=== PATIENT | female | born 1995 ===

== ENCOUNTER → 2020-05-10 | Outpatient (CLI) | payer OTHER | END | disposition home or self-care (01) | LOC: PRENATAL 13:00 | PROVIDERS: ATTEND Specialist | DX: O99.89 Other specified diseases and conditions complicating pregnancy, childbirth and the puerperium (principal); O35.3XX1 Maternal care for (suspected) damage to fetus from viral disease in mother, fetus 1; O35.0XX1 Maternal care for (suspected) central nervous system malformation in fetus, fetus 1 ==

== ENCOUNTER 2020-09-01 12:00 | Inpatient (IN) | payer OTHER ==
[~2020-09-01] VITALS: Ht 165.1 cm; Wt 83.0 kg
[2020-09-11] MEDS ORDERED: PRENATAL CAPLE1 EAC1 PO (14:54)
[2020-09-11] MEDS ORDERED: FOLIC ACID0.8 M1 PO (14:55)
[2020-09-11] MEDS ORDERED: SYMBICORT 80/10.2 GM IH (14:55)
== END 2020-09-13 12:46 | disposition home or self-care (01) | DRG 807 ==
LOC: OB/GYN 09-11 14:47 → LDR 09-11 14:47 → OB/GYN 09-11 22:15 → EDBD 09-13 12:00 → SURH 09-13 12:00 → OB/GYN 09-13 12:46
PROVIDERS: ADMIT Specialist; ATTEND Specialist
PROC: 10E0XZZ Delivery of Products of Conception, External Approach (ICD-10-PCS; principal; 2020-09-11)
PROC: 0KQM0ZZ Repair Perineum Muscle, Open Approach (ICD-10-PCS; 2020-09-11)
PROC: 10907ZC Drainage of Amniotic Fluid, Therapeutic from Products of Conception, Via Natural or Artificial Opening (ICD-10-PCS; 2020-09-11)
PROC: 0W8NXZZ Division of Female Perineum, External Approach (ICD-10-PCS; 2020-09-11)
PROC: 4A1HXFZ Monitoring of Products of Conception, Cardiac Rhythm, External Approach (ICD-10-PCS; 2020-09-11)
DX: O70.1 Second degree perineal laceration during delivery (principal); Z37.0 Single live birth; Z3A.39 39 weeks gestation of pregnancy; Z20.828 Contact with and (suspected) exposure to other viral communicable diseases